=== PATIENT | female | born 1980 ===

== ENCOUNTER 2018-08-02 14:45 | Outpatient (CLI) | payer MEDICAID | END 2018-08-02 14:46 | disposition home or self-care (01) | LOC: C.LAB 14:45 | DX: Z94.0 Kidney transplant status (principal) ==

== ENCOUNTER 2018-11-22 16:02 | Outpatient (CLI) | payer MEDICAID | END 2018-11-22 16:03 | disposition home or self-care (01) | LOC: C.LAB 16:02 | DX: Z94.0 Kidney transplant status (principal) ==